=== PATIENT | male | born 1965 | race Caucasian/White ===

== ENCOUNTER → 2017-10-05 | Day surgery (SDC) | payer OTHER, BC ==
[2017-09-28 13:43] VITALS: BMI 27.5
[~2017-10-05] MED LIST: PROPOFOL 20 ML ONE
[2017-10-05 10:57] VITALS: TEMP 97.9
[2017-10-05 12:20] VITALS: BP 122/84; PULSE 66
--- NOTE | 2017-10-07 17:38 | PATH ---
Surgical Pathology Report Patient Name: KEN ALONSO [facility]. Rec. #: [id number] /Age/Gender: 1965 (Age: 52) / M Account: [id number] Location: [facility]-ENDOSCOPY Taken: 10/05/2017 Received: 10/05/2017 Reported: 10/07/2017 Physicians: Eliane Dyer M.D. Specimen(s) Received A: BX SMALL BOWEL B: BX ANTRUM C: BX GE JUNCTION Clinical History Preoperative diagnosis: Abdominal pain Postoperative diagnosis: Celiac disease, gastritis, thickened prepyloric fold Final Diagnosis A. SMALL BOWEL, BIOPSY: SMALL BOWEL MUCOSA WITH NO SIGNIFICANT PATHOLOGIC FINDINGS. Note: Features suggestive of celiac disease are not identified in this biopsy. B. ANTRUM, BIOPSY: MILD CHRONIC GASTRITIS. IMMUNOSTAIN IS NEGATIVE FOR H. PYLORI ORGANISMS. C. GE JUNCTION, BIOPSY: ESOPHAGOGASTRIC JUNCTIONAL (SQUAMOCOLUMNAR) MUCOSA SHOWING MILD CHRONIC INFLAMMATION. NEGATIVE FOR INTESTINAL METAPLASIA. Electronically Signed Krissy Mazariegos M.D. Gross Description A. Received in formalin, labeled "small bowel" is a swanson, irregular portion of soft tissue measuring 0.3 cm. in greatest dimension. The specimen is submitted in toto in one cassette. B. Received in formalin, labeled "antrum" is a swanson, irregular portion of soft tissue measuring 0.4 cm. in greatest dimension. The specimen is submitted in toto in one cassette. C. Received in formalin, labeled "GE junction" is a swanson, irregular portion of soft tissue measuring 0.2 cm. in greatest dimension. The specimen is submitted in toto in one cassette. 10/06/201710/06/2017
== END | disposition home or self-care (01) ==
LOC: FASU-ENDO 10:26
PROVIDERS: ATTEND Internal Medicine Gastroenterology
PROC: 0DB48ZX Excision of Esophagogastric Junction, Via Natural or Artificial Opening Endoscopic, Diagnostic (ICD-10-PCS; 2017-10-05)
PROC: 0DB98ZX Excision of Duodenum, Via Natural or Artificial Opening Endoscopic, Diagnostic (ICD-10-PCS; principal; 2017-10-05 11:33)
PROC: 0DB68ZX Excision of Stomach, Via Natural or Artificial Opening Endoscopic, Diagnostic (ICD-10-PCS; 2017-10-05 11:33)
DX: K29.50 Unspecified chronic gastritis without bleeding (principal)
CPT/HCPCS: 88305-TC; 88342-TC